=== PATIENT | female | born 1940 | race Caucasian/White ===

== ENCOUNTER 2021-12-31 10:44 | Inpatient (IN) | payer OTHER, SELFPAY ==
[~2021-12-31] VITALS: Ht 152.4 cm; Wt 69.4 kg
[2021-12-31] MEDS ORDERED: NS IRRIG SOLN 1000 ML IR ONE (13:54)
[2021-12-31] MEDS ORDERED: NS 50 ML BAG IV ONE (13:54)
[2021-12-31] MEDS ORDERED: ARTICAINE HCL/EPINEPHRINE 4%/1:200,000 BIT 1.7 ML CARTRIDGE IJ ONE (13:54)
[2021-12-31 14:50] VITALS: BP_SYST 156
== END 2021-12-31 14:08 | disposition home or self-care (01) | DRG 145 ==
LOC: SDS 10:44 → SMU 10:46 → EDSTATUS 12:45
PROVIDERS: ADMIT Dentist General Practice; ATTEND Dentist General Practice
PROC: 0NUT0JZ Supplement Right Mandible with Synthetic Substitute, Open Approach (ICD-10-PCS; 2021-12-31)
PROC: 0NUV0JZ Supplement Left Mandible with Synthetic Substitute, Open Approach (ICD-10-PCS; principal; 2021-12-31 13:15)
DX: M27.2 Inflammatory conditions of jaws (principal); Z20.822 Contact with and (suspected) exposure to COVID-19
CPT/HCPCS: 36415; 70140

== ENCOUNTER 2022-01-22 08:24 | Day surgery (SDC) | payer OTHER, SELFPAY ==
[~2022-01-22] VITALS: Ht 152.4 cm; Wt 69.4 kg
[2022-01-22] MEDS ORDERED: AMOXICILLIN 500 MG CAPSULE PO ONE (10:00)
[2022-01-22 13:07] VITALS: BP_SYST 146
[2022-01-22] MEDS ORDERED: ARTICAINE HCL/EPINEPHRINE 4%/1:200,000 BIT 1.7 ML CARTRIDGE IJ ONE (14:20)
[2022-01-22] MEDS ORDERED: NS IRRIG SOLN 1000 ML IR ONE (14:20)
[2022-01-22] MEDS ORDERED: NS 250 ML BAG IV ONE (14:20)
== END 2022-01-22 11:50 | disposition home or self-care (01) ==
LOC: SDS 08:24 → SMU 08:27 → SDS 11:50
PROVIDERS: ATTEND Dentist General Practice
DX: M27.2 Inflammatory conditions of jaws (principal); M89.8X0 Other specified disorders of bone, multiple sites; M26.603 Bilateral temporomandibular joint disorder, unspecified; K05.223 Aggressive periodontitis, generalized, severe; K04.2 Pulp degeneration; I10 Essential (primary) hypertension; K12.2 Cellulitis and abscess of mouth; K08.429 Partial loss of teeth due to periodontal diseases, unspecified class; Z79.899 Other long term (current) drug therapy; Z20.822 Contact with and (suspected) exposure to COVID-19
CPT/HCPCS: 21026; 21215; 21248; 36415; 70140; 87426; C1713 ×2; J7050

== ENCOUNTER 2022-03-05 07:21 | Day surgery (SDC) | payer OTHER ==
[~2022-03-05] VITALS: Ht 152.4 cm; Wt 70.8 kg
[2022-03-05] MEDS ORDERED: NS 250 ML BAG IV ONE (08:00)
[2022-03-05] MEDS ORDERED: BENZOCAINE 20% GEL 32 GM BOTTLE MM ONE (08:00)
[2022-03-05] MEDS ORDERED: ARTICAINE HCL/EPINEPHRINE 4%/1:200,000 BIT 1.7 ML CARTRIDGE IJ ONE (08:00)
[2022-03-05] MEDS ORDERED: NS IRRIG SOLN 1000 ML IR ONE (08:00)
[2022-03-05 12:12] VITALS: BP_SYST 109
== END 2022-03-05 13:30 | disposition home or self-care (01) ==
LOC: SDS 07:21 → SMU 07:36 → SDS 13:30
PROVIDERS: ATTEND Dentist General Practice
DX: M27.2 Inflammatory conditions of jaws (principal); K05.6 Periodontal disease, unspecified; E78.5 Hyperlipidemia, unspecified; I10 Essential (primary) hypertension; M17.0 Bilateral primary osteoarthritis of knee; Z20.822 Contact with and (suspected) exposure to COVID-19; Z79.899 Other long term (current) drug therapy
CPT/HCPCS: 21026; 21048; 21210; 36415; 41826; 70140; 87426; C1713 ×2; J7050

== ENCOUNTER 2022-04-16 07:36 | Day surgery (SDC) | payer OTHER ==
[~2022-04-16] VITALS: Ht 152.4 cm; Wt 65.3 kg
[2022-04-16] MEDS ORDERED: NS IRRIG SOLN 1000 ML IR ONE (09:00)
[2022-04-16] MEDS ORDERED: NS 100 ML BAG ONE (09:00)
[2022-04-16] MEDS ORDERED: ARTICAINE HCL/EPINEPHRINE 4%/1:200,000 BIT 1.7 ML CARTRIDGE IJ ONE (09:00)
[2022-04-16] MEDS ORDERED: BENZOCAINE 20% GEL 32 GM BOTTLE MM ONE (09:00)
[2022-04-16 12:55] VITALS: BP_SYST 145
== END 2022-04-16 12:46 | disposition home or self-care (01) ==
LOC: SDS 07:36 → SMU 08:02 → SDS 12:46
PROVIDERS: ATTEND Dentist General Practice
DX: M27.2 Inflammatory conditions of jaws (principal); K05.6 Periodontal disease, unspecified; M89.8X0 Other specified disorders of bone, multiple sites; M26.603 Bilateral temporomandibular joint disorder, unspecified; K05.223 Aggressive periodontitis, generalized, severe; K08.429 Partial loss of teeth due to periodontal diseases, unspecified class; I10 Essential (primary) hypertension; E78.5 Hyperlipidemia, unspecified; M17.0 Bilateral primary osteoarthritis of knee; Z79.899 Other long term (current) drug therapy
CPT/HCPCS: 21025; 21215; 21248; 36415; 70140; 87426; C1713